=== PATIENT | female | born 1955 | race American Indian/Alaskan Native ===

== ENCOUNTER → 2020-07-24 | Outpatient (CLI) | payer MEDICARE ==
[~2020-07-24] MED LIST: ASPIRIN 81M81 MG/TA2 PO; ELIQUIS 5MG PO; GLUCOPHAGE500 MG/TAB PO; NORVASC 10MG10 MG PO; PLAVIX 75MG TAB75 MG PO; TOPROL XL200 MG PO; TYLENOL 500MG500 MG PO; VITAMINC1000TA PO; WOMEN'S DAILY1 TAB PO; ZESTRIL 10MG10 MG PO
== END ==
LOC: ZCOL.LAB 15:40
DX: R06.02 Shortness of breath (principal)